=== PATIENT | female | born 1955 | race Caucasian/White ===

== ENCOUNTER → 2017-12-20 | Emergency (ER) | payer OTHER ==
[~2017-12-20] VITALS: Ht 167.6 cm; Wt 59.0 kg
[~2017-12-20] MED LIST: LISINOPRIL10 MG PO; VISTARIL50 MG PO
== END | disposition home or self-care (01) ==
LOC: ER 09:55
DX: R00.0 Tachycardia, unspecified (principal); F43.0 Acute stress reaction; F41.1 Generalized anxiety disorder